=== PATIENT | female | born 1995 | race Caucasian/White ===

== ENCOUNTER 2017-06-15 06:01 | Inpatient (IN) | payer BC ==
[~2017-06-15] VITALS: Ht 170.2 cm; Wt 139.7 kg
--- NOTE | ~2017-06-15 | S ---
[facility] [address] SURGICAL PATH RPT PROCEDURE Name: DELORES MONCADA Room #: DEP [facility] M.R.#: [id number] Admission: 06/15/17 Date of : [birth year] Discharge: 06/16/17 Report #: [id number] Path Case #: [id number] PATHOLOGY REPORT COLLECTION DATE: 06/15/2017 RECEIVED DATE: 06/15/2017 SUBMITTING PHYS: Dr. Diann Perez OTHER PHYS: Dr. Manuel Cerrato SPECIMEN(S) RECEIVED: A.Gastric sleeve * * * * * * * * * * * * FINAL DIAGNOSIS: "Gastric sleeve", partial gastrectomy: - Gastric mucosa, submucosa and muscular wall with minimal histologic alterations. (CLW:quique; 06/16/2017) PATHOLOGIST: Debora Tovar M.D. REPORT ELECTRONICALLY SIGNED BY: Debora Tovar M.D. DATE/TIME: 06/18/2017 21:41 * * * * * * * * * * * * GROSS PATHOLOGY: The specimen is received in formalin, labeled "Delores Moncada, gastric sleeve". Received is a partial gastrectomy specimen with a stapled margin of resection measuring 21.2 x 5.7 cm in greatest dimensions. The serosal surface is pink-maradiaga and smooth. Opening the specimen reveals pink-maradiaga mucosa displaying its normal architectural folds. No polyps or mass lesions identified. The specimen is submitted representatively in cassettes A1-A3. (SD; 06/15/2017) CLINICAL HISTORY: Morbid obesity INITIAL CPT CODE(S): A; 26750 Professional services performed by [facility] at [facility] [address], [place] [address] Technical services performed by [facility] at [address] [place] [address] [place] [address] SURGICAL PATH RPT PROCEDURE Name: MONCADADELORES Room #: DEP [facility] [place]#: [id number] Admission: 06/15/17 Date of : [birth year] Discharge: 06/16/17 Report #: [id number] Path Case #: [id number] [place] [address]. [facility] [address] [address] PHONE: [phone] DIRECTOR: Karel Villafuerte M.D. * * * END OF REPORT * * *
--- NOTE | ~2017-06-15 | O ---
[facility] [place] [address] OPERATIVE REPORT Name: DELORES MONCADA Room #: 411-P [facility] M.R.#: [id number] Admission: 06/15/17 Attend Phys: Diann Perez MD, Discharge: Date of : 97 Report #: [id number] THIS REPORT FOR: //name// CC: Kari Perez DATE OF SERVICE: 06/15/2017 PREOPERATIVE DIAGNOSES: 1. Hypertension. 2. Snoring disorder. 3. Morbid obesity with a body mass index of 48. 4. Lumbago. 5. Chronic bilateral lower extremity joint pain. 6. Chronic fatigue. POSTOPERATIVE DIAGNOSES: 1. Hypertension. 2. Snoring disorder. 3. Morbid obesity with a body mass index of 48. 4. Lumbago. 5. Chronic bilateral lower extremity joint pain. 6. Chronic fatigue. PROCEDURES PERFORMED: 1. Laparoscopic sleeve gastrectomy. 2. A thorough esophagogastroduodenoscopy (EGD). SURGEON: Diann Perez MD PROCESS CONTROL SUPERVISOR: Manuel Flor MD ANESTHESIA: General endotracheal anesthesia. ESTIMATED BLOOD LOSS: Minimal (less than 5 mL). COMPLICATIONS: None appreciated. SPECIMENS: Gastric sleeve resection specimen to pathology. INDICATIONS: The patient is a 21-year-old morbidly obese female who presented with a longstanding history of morbid obesity as well as hypertension at her young age, who has tried numerous weight loss attempts, all to no avail. The patient has undergone a thorough multimodal workup including evaluation and clearance from her primary care physician, a outreach representative and psychology as well as having undergone physician-directed weight loss plans under my direction for [facility] [address] [place] [address] OPERATIVE REPORT Name: DELORES MONCADA Room #: 411-P [facility] M.R.#: [id number] Admission: 06/15/17 Attend Phys: Diann Perez MD, Discharge: Date of : 97 Report #: [id number] the past several months, all to no avail. As such, indication was for the above-mentioned procedures today. PROCEDURE: After explaining the risks, benefits, and alternatives of the procedure with the patient in detail in the preoperative holding area and obtaining written consent, the patient was brought to the operating room and placed supine on the operating room table. After conducting a thorough time-out procedure, verifying correct patient and procedure, the patient was given general endotracheal anesthesia. Once adequate anesthesia was obtained, her SCDs were hooked up to pneumatic compression device, she was given a preoperative dose of antibiotics in line with the SCIP protocol. The patient's abdomen was now prepped and draped in standard surgical sterile fashion after positioning her in the low lithotomy position with her legs in the Yellofin stirrups. I began the procedure by performing a thorough EGD. The Lamppostn upper endoscope was used to intubate the oropharynx and was traversed down into the esophagus with ease. This was advanced past the pylorus to the second portion of duodenum where slow careful withdrawal of the EGD scope showed no evidence of duodenitis, gastritis, esophagitis, mass lesions or ulcerations. Retroflexion view of the scope within the gastric lumen showed no evidence of hiatal hernia. The scope was straightened out with its tip at the level of pylorus where it was taped into position, the stomach was fully desufflated and I sterilely entered the operative field. A 5 mL of 0.5% Marcaine with epinephrine were used to anesthetize the skin in the right mid abdomen 5 cm cephalad to the umbilicus and 5 cm to the patient's right. A #15 bladed scalpel was used to create a 1.5 cm transverse skin incision at this location. A 15-mm Visiport was placed over 0-degree 5-mm laparoscope and was introduced through this incision site. Once intra-abdominal placement was verified visually, the obturator for the trocar and laparoscope were both removed and the abdomen was insufflated to 15 mmHg using carbon dioxide gas. The laparoscope was changed to a 5-mm 30-degree laparoscope, which was reintroduced through this trocar. The entire abdomen was evaluated to ensure no injury upon entry. I now placed three additional 5-mm trocars in the left abdomen. The first was placed 1-cm superior to the umbilicus and 1-cm to the patient's left, additional one was placed 5-cm lateral to that, and a final one was placed in extreme left lateral flank. All three additional 5-mm ports were placed under direct vision after anesthetizing the skin at each location with 5 mL of 0.5% Marcaine with epinephrine and I had created small skin nicks using a #15 bladed scalpel. The laparoscope was removed and changed to the 5 mm port just to the left of the patient's umbilicus and she was placed in steep reverse Trendelenburg position. I now placed a Sandra liver retractor in subxiphoid location by anesthetizing the skin at that location with 5 mL of 0.5% Marcaine with epinephrine and I had created a small skin israel using a #15 bladed scalpel. I utilized the obturator from the 5 mm port to penetrate the fascia at this level and then maneuvered the Sandra retractor through this defect where it was positioned up under the left lobe of the liver and was held up against the posterior aspect of the anterior abdominal wall. This was then fixed into position using the iron biology internship device to [facility] [address] [place] [address] OPERATIVE REPORT Name: DELORES MONCADA Room #: 411-P [facility] M.R.#: [id number] Admission: 06/15/17 Attend Phys: Diann Perez MD, Discharge: Date of : 97 Report #: [id number] stabilize it and we had complete access to the stomach and hiatal regions, again seeing no evidence of a hiatal hernia. We now started our dissection after identifying our landmarks. The vein of Beck was identified overlying the pylorus. I measured 4 cm proximal to this location and began taking down the short gastric arteries from this location all the way up the greater curvature of the stomach using Harmonic scalpel for hemostasis. Once I arrived upon the base of the left esthela, I dissected anteriorly up the left esthela fully mobilizing the stomach and taking down all posterior gastric attachments ensuring that I stayed well away from both the posterior wall of the stomach as well as the anterior aspect of the pancreas so as to prevent injury from thermal spread. The EGD scope was positioned to run along the lesser curvature of the stomach and we now started the stapling portion of the procedure. The [place] 60-mm stapler with a black load utilizing Livingston's Angie-Strip buttressing material placed over it was entered into the abdomen through the 15-mm port. This first firing started at the location 4-cm proximal to the pylorus and fired right along, but not extremely tight to the scope, so as not to cause stricturing especially at the incisura. An additional firing of another black load again utilizing Livingston's Angie-Strip buttressing material was carried out following the scope as a 34-Bahraini bougie. Six additional firings of green loads all utilizing Livingston's Angie-Strip buttressing material was carried out following the scope as a bougie all the way up to the left esthela until the stomach was completely transected. This left an excellently oriented sleeve of gastric remnant that did not have any twisting and we had complete hemostasis with only a gentle ooze at one area on the staple line nearest the pylorus. A laparoscopic clip cell inspector was used to maintain complete hemostasis along the staple line. The resection specimen was placed in the right upper quadrant for future retrieval and 10 mL of Tisseel on the WiN MSlospray device was now used to coat the entirety of the staple line with fibrin glue. I now grasped the resection specimen through the 15 mm trocar and removed this out of the abdomen under direct vision with ease. I then placed a fascial closing suture around the 15 mm fascial incision using 0 PDS suture on a Kit-Adeola needle under direct vision. This was not tied down at this juncture, but was tagged with a hemostat and trocars were placed under direct vision. The Tisseel had dried and we instilled normal saline in the upper abdomen and reactivated the EGD scope from above. Slow and careful withdrawal of the EGD scope allowed us to evaluate the staple line from the inside and we had complete hemostasis. This also allowed gentle insufflation, which was then held under the normal saline in the abdomen and we saw no evidence of bubbling, thereby signifying a negative leak test. The EGD scope was used to desufflate the stomach, was removed via the oropharynx, passed off the field and I sterilely reentered the operative field once again. All normal saline was suctioned out of the abdomen and it ran clear throughout. Again, we had no twisting of the sleeve and had complete hemostasis. The Sandra liver retractor was removed and the liver was healthy and uninjured. I then tied down the 0 PDS sutures for the 15-mm fascial incision under direct vision after reducing the insufflation pressure to 8 mmHg. This was done to ensure I did not catch a loop of bowel or omentum in the [address] [address] OPERATIVE REPORT Name: DELORES MONCADA Room #: 411-P [facility] M.R.#: [id number] Admission: 06/15/17 Attend Phys: Diann Perez MD, Discharge: Date of : 97 Report #: [id number] suture repair. The abdomen was now fully desufflated, all remaining trocars were removed under direct vision. A 4-0 Monocryl was used in a standard subcuticular fashion for all skin incisions and Dermabond glue was applied to all skin wounds. The corner of the resection specimen had been removed, was trimmed away, and normal saline was passively instilled into the resection specimen yielding 1700 mL in the resection specimen itself. At the end of the procedure, all instrument, needle and sponge counts were correct, the patient tolerated the procedure without incident, was awakened in the operating room and transitioned to the recovery room in stable condition with no apparent complications. <ELECTRONICALLY SIGNED> By: Diann Perez MD, FACS 06/16/17 0747 [id number] Diann Perez MD, FACS /nt
--- NOTE | ~2017-06-15 | EKG ---
[address] [address] ELECTROCARDIOGRAM REPORT Name: DELORES MONCADA Room #: 150-14 [facility]..#: [id number] Admission: 06/15/17 Attend Phys: Diann Perez MD, Discharge: Date of : 97 Report #: [id number] THIS REPORT FOR: //name// [facility] Test Date: 2017-06-15 Test Time: 08:02:48 Pat Name: DELORES MONCADA Department: Room: 150 14 Gender: F Grievance Coordinator: [place] : 1995 Requested By: Diann Perez Order Number: [id number] MD: Joey Ramos Measurements Intervals [place] Rate: 82 P: -14 [place]: 165 QRS: -1 QRSD: 94 T: 29 QT: 371 QTc: 434 Interpretive Statements Sinus rhythm Normal tracing No previous ECG available for comparison Electronically Signed On 06-15-2017 8:08:04 GRINDING ROOM INSPECTOR by Joey Ramos [email or web address] <ELECTRONICALLY SIGNED> By: Joey Ramos MD, [facility] 06/15/17807 08 08 Joey Ramos MD, FACC /EPI
[~2017-06-15 06:01] MED LIST: HYDROCHLOROTHIA25 M2 PO; KLONOPIN0.5 MG PO; LEXAPRO20 MG PO; PROPRANOLOL 4040 M1 PO
[2017-06-15 08:44] LABS: CALCIUM 9.4 mg/dL (8.5-10.1); CREATININE 0.8 mg/dL (0.6-1.0); POTASSIUM 3.4 mmol/L (3.5-5.1)
[2017-06-15 08:58] VITALS: BP 140/93
[2017-06-15] MEDS ORDERED: ZOFRAN ODT4 MG DISSOLVE (11:27)
[2017-06-15] MEDS ORDERED: HYDROCODONE-ACE15 ML PO (11:27)
[2017-06-15 18:05] VITALS: BP 151/88
[2017-06-15 19:33] VITALS: BP 115/70
[2017-06-16] VITALS: BP 131/74
[2017-06-16 04:00] VITALS: BP 123/60
[2017-06-16 05:53] LABS: HEMATOCRIT 39.4 % (37.0-47.0); HEMOGLOBIN 13.3 gm/dL (12.0-15.0); MCH 29.2 pg (26.0-34.0); MCHC 33.8 g/dL (28.0-37.0); MCV 86.5 fL (80.0-100.0); RBC 4.56 mil/uL (4.20-5.00); RDW 13.5 % (10.5-14.5); WBC 11.4 thou/uL (4.0-11.0)
[2017-06-16 06:01] LABS: CALCIUM 8.3 mg/dL (8.5-10.1); CREATININE 0.8 mg/dL (0.6-1.0)
[2017-06-16 08:30] VITALS: BP 143/77
[2017-06-16 10:04] VITALS: BP 143/77
== END 2017-06-16 09:16 | disposition home or self-care (01) | DRG 621 ==
LOC: OR 06:01 → TBA 06:02 → OR 10:51 → TBA 11:23 → OR 15:20 → 4N 17:39 → TBA 06-16 09:16 → ENTRNSPT 06-16 10:29 → EDTRNSPTSTS 06-16 10:32 → OR 06-16 10:35
PROVIDERS: Surgery
PROC: 0DJ08ZZ Inspection of Upper Intestinal Tract, Via Natural or Artificial Opening Endoscopic (ICD-10-PCS; principal; 2017-06-15)
PROC: 0DB64Z3 Excision of Stomach, Percutaneous Endoscopic Approach, Vertical (ICD-10-PCS; principal; 2017-06-15)
DX: E66.01 Morbid (severe) obesity due to excess calories (principal); M54.5 Low back pain; I10 Essential (primary) hypertension; M79.662 Pain in left lower leg; M79.661 Pain in right lower leg; G89.29 Other chronic pain; F32.9 Major depressive disorder, single episode, unspecified; F41.9 Anxiety disorder, unspecified; R06.83 Snoring; Z68.42 Body mass index [BMI] 45.0-49.9, adult; Z79.899 Other long term (current) drug therapy
CPT/HCPCS: 50010; 50101; 50222; 50249; 50386; 50555; 50739; 50740; 50962; 51437; 52182; 52265; 53307; 53311; 54022; 54118; 55245; 56462; 56525; 56526; 57092; 62110; 62900; 70005